=== PATIENT | male | born 1945 | race Caucasian/White ===

== ENCOUNTER → 2018-12-02 | Outpatient (CLI) | payer MEDICARE ==
--- NOTE | 2018-12-06 08:31 | CT ---
EXAMINATION TYPE: CT angio abd aorta w/Runoff DATE OF EXAM: 12/02/2018 COMPARISON: None HISTORY: AAA. CT DLP: 1380 mGycm CONTRAST: CTA abdominal aorta with 3-D reconstruction is performed without Oral Contrast and with IV Contrast, patient injected with 80 mL of Isovue 370. Contrast CTA of the abdominal aorta with runoff of the lower extremity arterial system was performed from the lung bases through the ankles and feet. 3-D reconstruction imaging obtained at a separate wo rkstation. ABDOMINAL AORTA: Distal thoracic aneurysm is noted measuring 4.8 cm AP dimension. There is infrarenal abdominal aortic aneurysm measuring 4.6 cm AP dimension and 8.1 cm in length. There is mural thrombu s and atheromatous change. No evidence for dissection. There is aneurysm of the right common iliac ar nanci Iliac vessels: There is aneurysm of the right common iliac artery measuring 2.7 cm. There is ectasia of the left common iliac artery without additional aneurysm. Internal and external iliac arteries are nonaneurysmal. Mild scattered atheromatous change without definite hemodynamically significant steno sis. Femoral arteries: Mild atheromatous change noted bilaterally without hemodynamically significant sten osis. Popliteal arteries: Popliteal arteries are patent bilaterally with only mild plaque formation noted. Below the knee arteries: Trifurcation is patent bilaterally. Peroneal, anterior and posterior tibial arteries demonstrate mild calcific disease without evidence for hemodynamically significant stenosis. Limited runoff of the ankles and feet given timing of the contrast bolus. LIVER/GB- No significant abnormality is seen. PANCREAS- No significant abnormality is seen. SPLEEN- No significant abnormality is seen. ADRENALS- No significant abnormality is seen. KIDNEYS/BLADDER- No significant abnormality is seen. BOWEL- No Significant abnormality GENITAL ORGANS: No gross abnormality seen. LYMPH NODES- No greater than 1cm abdominal or pelvic lymph nodes are appreciated. OSSEOUS STRUCTURES- No significant abnormality is seen. OTHER- No significant abnormality is seen. IMPRESSION- 1. Distal thoracic aortic aneurysm as noted. 2. 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
== END | disposition home or self-care (01) ==
LOC: RADCTMAIN 14:03
PROVIDERS: ATTEND Internal Medicine Interventional Cardiology
DX: I71.2 Thoracic aortic aneurysm, without rupture (principal); I71.4 Abdominal aortic aneurysm, without rupture; I72.3 Aneurysm of iliac artery
CPT/HCPCS: 82565; 84520; 75635; 36415; Q9967

== ENCOUNTER → 2020-02-22 | Outpatient (CLI) | payer MEDICARE, OTHER ==
--- NOTE | 2020-02-22 14:45 | CT ---
EXAMINATION TYPE: CT angio abdomen pelvis DATE OF EXAM: 02/22/2020 COMPARISON: CTA December 02, 2018 HISTORY: Follow up to AAA CT DLP: 979.6 mGycm, Automated Exposure Control for Dose Reduction was Utilized. CONTRAST: CTA scan of the abdomen and pelvis is performed without oral and without and with IV Contrast, patien t injected with 80 mL of Isovue 370. Aneurysm protocol with 3-D reconstructed images created on an in dependent workstation and reviewed. FINDINGS: VASCULAR: Ectatic course to the descending thoracic aorta. Descending thoracic aorta measures up to 5 .1 cm axial image 10 just above diaphragm. Moderate peripheral plaque. Patent celiac artery, SMA, sandhya ateral single renal arteries and MARY without significant stenosis. There is gradual tapering with ect atic course proximal to midsegment abdominal aorta before there is more focal distal AAA up to 5.3 cm transversely axial image 46, study increased in size from 4.6 cm prior study. Aneurysm does not exte nd into the common iliac arteries bilaterally. Length of aneurysm stable approaching roughly 8 cm in length. There is focal clotted aneurysm of the distal common iliac artery up to 2.5 cm image 60 uncha nged from prior. Moderate to severe calcified plaque in the iliac branch vessels is redemonstrated. LUNG BASES: No significant abnormality is appreciated. LIVER/GB: No significant abnormality is appreciated. PANCREAS: No significant abnormality is seen. SPLEEN: Occasional calcifications throughout the spleen are redemonstrated. ADRENALS: Low dense thickening to both adrenal glands consistent with lipid rich hyperplasia is redem onstrated. KIDNEYS: No significant abnormality is seen. BOWEL: No significant abnormality is seen. PROSTATE/SEMINAL VESICLES: Mildly enlarged prostate consistent with BPH. LYMPH NODES: No greater than 1cm abdominal or pelvic lymph nodes are appreciated. OSSEOUS STRUCTURES: Multilevel facet arthropathy mid to lower lumbar spine. OTHER: No significant additional abnormality is seen. IMPRESSION: Worsening distal AAA up to 5.3 cm in diameter prior study. At minimum imaging follow-up o r monitoring in 3-6 months time is advised. Consider surgical and/or endovascular referral.
== END | disposition home or self-care (01) ==
LOC: RADCTMAIN 10:26
PROVIDERS: ATTEND Internal Medicine Cardiovascular Disease
DX: I71.4 Abdominal aortic aneurysm, without rupture (principal)
CPT/HCPCS: 82565; 84520; 36415; 74174; Q9967

== ENCOUNTER → 2020-08-23 | Outpatient (CLI) | payer MEDICARE, OTHER ==
[2020-08-23 13:13] LABS: ALT 18 U/L (4-49); AST 21 U/L (17-59); Cholesterol 173 mg/dL (<200); HDL Cholesterol 41 mg/dL (40-60); LDL Cholesterol,Calculated 105 mg/dL (0-99); Triglycerides 133 mg/dL (<150)
--- NOTE | 2020-08-24 14:18 | CT ---
EXAMINATION TYPE: CT angio abdomen pelvis DATE OF EXAM: 08/23/2020 COMPARISON: 02/22/2020 INDICATION: Abdominal aortic aneurysm DLP: 619.00 mGycm, Automated exposure control for dose reduction was used. CONTRAST: 100 mL of Isovue 370. Study performed without Oral Contrast TECHNIQUE: Axial images were obtained from above the diaphragm to the pubic rami in the axial plane a t 5 mm thick sections. Reconstructed images are reviewed on the computer in the coronal plane. FINDINGS: Limited CT sections are obtained the lung bases. The lung bases are clear. There is tortuosity of t he descending thoracic aorta. The thoracic aorta above the diaphragm is a transverse dimension of 4.[address] ABDOMEN: Aorta: The celiac axis and superior mesenteric artery origins appear normal. Bilateral renal artery t akeoffs appear normal. Vascular calcification is present. There is a infrarenal abdominal aortic aneu rysm with an AP diameter of 5.3 cm. This extends into the right common iliac artery. There is mild pr ominence of the left common iliac artery distally. Some aneurysmal dilatation of the distal right com mon iliac artery bifurcation is present measuring 3.0 cm. Left distal common iliac artery measures 2. 0 cm, Iliac arteries extending to the common femoral arteries. Common femoral arteries and profunda femoris vessels are normal. Liver: Normal Spleen: Normal Pancreas: Normal Adrenal glands: There is mild fullness of the left adrenal gland measuring 1.6 cm. Right adrenal glan d is normal. Gallbladder: Normal Kidneys: No masses are evident. No hydronephrosis is present. No cysts are present. No renal stone s are identified. Inferior vena cava: Normal. CT PELVIS: Loops of bowel within the abdomen and pelvis are normal. The studies without oral contrast limiti ng bowel evaluation. Appendix: Normal as visualized. Urinary bladder: Normal. Genitourinary structures: Prostate is prominent. Some calcification is present. Osseous structures: No suspicious lytic or sclerotic lesions. IMPRESSIONS: 1. Dominant aortic aneurysm is stable from comparison. This infrarenal abdominal aortic aneurysm ext ends into the common iliac vessels discussed above.
== END | disposition home or self-care (01) ==
LOC: RADCTMAIN 10:45
PROVIDERS: ATTEND Internal Medicine Cardiovascular Disease
DX: I71.4 Abdominal aortic aneurysm, without rupture (principal)
CPT/HCPCS: 80061; 82565; 84450; 84460; 84520; 36415; 74174; Q9967

== ENCOUNTER → 2021-09-08 | Outpatient (CLI) | payer MEDICARE, OTHER ==
--- NOTE | 2021-09-08 14:36 | CT ---
EXAMINATION TYPE: CT angio abdomen pelvis DATE OF EXAM: 09/08/2021 COMPARISON: 08/23/20 HISTORY: AAA follow up CT DLP: 1015.50 mGycm CONTRAST: CTA abdominal aorta with 3-D reconstruction is performed without Oral Contrast and with IV Contrast, patient injected with 80 mL of Isovue 370. Contrast CTA of the abdominal aorta was performed from the lung bases through the base of the pelvis. 3-D reconstruction imaging obtained at a separate workstation. CONTRAST CT ABDOMEN AND PELVIS ABDOMINAL AORTA: At the aortic hiatus there is a abdominal aortic aneurysm measuring 5.2 cm versus 4. 9 cm previously. There is additional infrarenal abdominal aortic aneurysm measuring 5.3 cm AP dimensi on versus 5.8 cm currently. Aneurysm extends to the level of the aortic bifurcation. Ectatic iliac ve ssels are noted without additional aneurysm. Major branch vessels are patent. LIVER/GB- No significant abnormality is seen. PANCREAS- No significant abnormality is seen. SPLEEN- No significant abnormality is seen. ADRENALS- No significant abnormality is seen. KIDNEYS/BLADDER- No significant abnormality is seen. BOWEL- No Significant abnormality GENITAL ORGANS: No gross abnormality seen. LYMPH NODES- No greater than 1cm abdominal or pelvic lymph nodes are appreciated. OSSEOUS STRUCTURES- No significant abnormality is seen. OTHER- No significant abnormality is seen. IMPRESSION- 1. Progression of abdominal aortic aneurysm at the aortic hiatus and infrarenal regions.
== END | disposition home or self-care (01) ==
LOC: RADCTMAIN 10:25
PROVIDERS: ATTEND Internal Medicine Cardiovascular Disease
DX: I71.4 Abdominal aortic aneurysm, without rupture (principal)
CPT/HCPCS: 82565; 84520; 36415; 74174; Q9967

== ENCOUNTER 2022-04-21 10:41 | Day surgery (SDC) | payer MEDICARE, OTHER ==
[~2022-04-21 10:41] MED LIST: DEXAMETHASONE SOD PHOSPHATE 4 MG/ML 1 ML VIAL IV ONE; HYDROmorphone 0.5 MG/0.5 ML SYRINGE IVP PRN; LACTATED RINGERS 1,000 ML IV SCH; ONDANSETRON 4 MG/2 ML VIAL IVP ONE; SODIUM CHLORIDE 0.9% 1,000 ML in EMPTY BAG 1 BAG IV ONE
[2022-04-21] MEDS ORDERED: SODIUM CHLORIDE 0.9% 1,000 ML IV ONE (11:40)
[2022-04-21 11:54] VITALS: BP 141/80; PULSE 67; RESP 16; TEMP 98.2
[2022-04-21 11:56] LABS: Basophils % (A) 0 %; Eosinophils # (A) 0.8 k/uL (0-0.7); Eosinophils % (A) 7 %; HCT 44.1 % (39.0-53.0); Lymphocytes # (A) 3.1 k/uL (1.0-4.8); Lymphocytes % (A) 27 %; MCH 31.7 pg (25.0-35.0); MCV 93.1 fL (80.0-100.0); Mean Platelet Volume 7.7; Monocytes # (A) 0.5 k/uL (0-1.0); Monocytes % (A) 4 %; Neutrophils % (A) 61 %; Platelet Count 251 k/uL (150-450); RBC 4.74 m/uL (4.30-5.90); RDW 14.5 % (11.5-15.5); WBC 11.6 k/uL (3.8-10.6)
[2022-04-21 12:09] LABS: Calcium 9.2 mg/dL (8.4-10.2); Potassium 4.7 mmol/L (3.5-5.1)
--- NOTE | 2022-04-21 13:08 | P.ANPRN ---
Procedure Note - Anesthesia - Invasive Line Left Arterial Line Time Out Performed: Yes ([id number]) Date of Procedure: 04/21/22 Time of Procedure: 12:28 Location of Patient: [facility] Preparation: Sterile Prep Arterial Line Location: Radial (left) Ultrasound Used: No Purpose - Visualization and Identification of Vasculature: No Needle Guage: 20g Image Stored and Saved: No Narrative: Central line placement per sterile protocol utilized.
== END 2022-04-21 16:00 | disposition home or self-care (01) ==
LOC: OR 10:41 → EDSTATUS 14:15 → OR 16:00 → UNDODISIN 16:00
PROVIDERS: ATTEND Internal Medicine Interventional Cardiology
DX: I71.40 Abdominal aortic aneurysm, without rupture, unspecified (principal); I10 Essential (primary) hypertension; E78.5 Hyperlipidemia, unspecified; F17.210 Nicotine dependence, cigarettes, uncomplicated
CPT/HCPCS: 80048; 85025; 86850; 86900; 86901

== ENCOUNTER 2022-06-05 09:45 | Inpatient (IN) | payer MEDICARE, OTHER ==
[~2022-06-05 09:45] MED LIST changes: -HYDROmorphone 0.5 MG/0.5 ML SYRINGE IVP PRN; -LACTATED RINGERS 1,000 ML IV SCH; +MIDAZOLAM 2 MG/2 ML VIAL IV PRN
[2022-06-05] MEDS ORDERED: ASPIRIN 325 MG TAB ONE (10:19)
[2022-06-05] MEDS ORDERED: ASPIRIN 325 MG TAB PO STA (10:21)
[2022-06-05] MEDS ORDERED: ASPIRIN 325 MG TAB PO ONE (10:21)
[2022-06-05 10:35] LABS: Basophils # (A) 0.1 k/uL (0-0.2); Basophils % (A) 1 %; Eosinophils # (A) 0.9 k/uL (0-0.7); Eosinophils % (A) 7 %; HCT 45.6 % (39.0-53.0); HGB 15.1 gm/dL (13.0-17.5); Lymphocytes # (A) 2.9 k/uL (1.0-4.8); Lymphocytes % (A) 21 %; MCH 30.6 pg (25.0-35.0); MCHC 33.1 g/dL (31.0-37.0); MCV 92.3 fL (80.0-100.0); Mean Platelet Volume 7.3; Monocytes # (A) 0.6 k/uL (0-1.0); Monocytes % (A) 4 %; Neutrophils % (A) 66 %; Platelet Count 240 k/uL (150-450); RBC 4.94 m/uL (4.30-5.90); RDW 14.4 % (11.5-15.5); WBC 13.7 k/uL (3.8-10.6)
[2022-06-05 10:52] LABS: Potassium 4.3 mmol/L (3.5-5.1)
[2022-06-05] MEDS ORDERED: GLYCOPYRROLATE 0.2 MG/ML 2 ML VIAL ONE (11:54)
[2022-06-05] MEDS ORDERED: LIDOCAINE 2% INJ 20 MG/ML (2 ML VIAL) ONE (11:54)
[2022-06-05] MEDS ORDERED: NEOSTIGMINE 1 MG/ML 10 ML VIAL ONE (11:54)
[2022-06-05] MEDS ORDERED: fentaNYL (PF) 50 MCG/ML 2 ML AMP ONE (11:54)
[2022-06-05] MEDS ORDERED: PHENYLEPHRINE-0.9% NACL SYG 1,000 MCG/10 ML SYRINGE ONE (11:54)
[2022-06-05] MEDS ORDERED: HYDROmorphone (PF) 1 MG/ML ONE (11:54)
[2022-06-05] MEDS ORDERED: PROPOFOL 10 MG/ML 20 ML VIAL IV ONE (11:54)
[2022-06-05] MEDS ORDERED: ROCURONIUM 10 MG/ML (5 ML VIAL) IV ONE (11:54)
[2022-06-05] MEDS ORDERED: MIDAZOLAM 2 MG/2 ML VIAL ONE (11:54)
--- NOTE | 2022-06-05 12:20 | P.ANPRN ---
Procedure Note - Anesthesia - Invasive Line Left Arterial Line Time Out Performed: Yes Date of Procedure: 06/05/22 Time of Procedure: 10:45 Location of Patient: [facility] Preparation: Sterile Prep, Sterile Dressing Arterial Line Location: Radial Ultrasound Used: No Purpose - Visualization and Identification of Vasculature: No Narrative: Informed consent obtained from the patient. Procedure was performed under complete aseptic precautions. The left wrist is slightly extended and placed on a roll of cloth. Radial artery palpated and appeared to have a intact collateral circulation. Front of the wrist was cleaned with ChloraPrep. It was draped and 2 mL of 1% lidocaine was infiltrated and ability into the front of the wrist. A 20-gauge two and half inch Arrow arterial catheter was inserted and a bright red blood/back was noticed. It was connected to the pressure monitoring line and the flashback was confirmed. The line was sutured into the skin. Tegaderm dressing was applied. Patient tolerated the procedure very well with no apparent complications.
[2022-06-05] MEDS ORDERED: SODIUM CHLORIDE 0.9% 1,000 ML IV ONE ×2 (13:30→15:50)
[2022-06-05] MEDS ORDERED: IOPAMIDOL-250 100ML BTL INTRAARTER ONE ×2 (14:20→14:21)
[2022-06-05] MEDS ORDERED: NALOXONE 0.4 MG/ML 10 ML VIAL IVP PRN (14:25)
[2022-06-05] MEDS ORDERED: diphenhydrAMINE 50 MG/ML 1 ML VIAL IVP ONE (14:48)
[2022-06-05] MEDS: HYDROmorphone 0.5 MG/0.5 ML SYRINGE IVP PRN ×4 (14:50→15:45)
[2022-06-05] MEDS: SODIUM CHLORIDE 0.9% 1,000 ML in EMPTY BAG 1 BAG IV SCH ×7 (16:00→20:43)
[2022-06-05] MEDS: LACTATED RINGERS 1,000 ML IV SCH (16:22)
--- NOTE | 2022-06-05 20:45 | P.PCN ---
Date of Procedure: 06/05/22 Operative Findings: Endovascular Repair of Abdominal Aortic Aneurysm(AAA) Procedure performed: 1. Successful endovascular repair of infrarenal AAA using 36 x 14 x 103 mm Endurant bifurcated stent graft system as a main body with an extension using 16 x 20 x 124 mm Endurant stent graft limb to the right iliac and 16 x 28 x 156 mm Endurant stent graft limb to the left iliac 2. Successful deployment of the Ruthie-FX EndoAnchor system (Aptus) 3. Intravascular ultrasound of the aorta and bilateral iliacs 4. An abdominal aortogram and bilateral iliacs angiogram 5. Successful percutaneous repair of bilateral femoral arteries and successful ultrasound-guided access of bilateral femoral arteries Performing physicians: Primary: Sisi Oglesby MD Paint Technician: Donald Lawson DO Indication: This is a 76-year-old gentleman who sees Dr. Lindsay regularly. He was diagnosed recently with infrarenal abdominal aortic aneurysm exceeding 5.5 cm in diameter. It was progressed compared to before. That was documented by duplex study and subsequently CTA. In the light of that he was brought today to undergo endovascular repair Approach: Right and left common femoral arteries Complications: None Level of sedation: The procedure was performed under general anesthesia Procedure description: After obtaining an informed consent the patient was brought to the cardiac Saturation Equipment Operator. The patient subsequently was sedated and under general anesthesia. Subsequently the patient was prepped and draped in the usual sterile fashion. Subsequently flowing of the right and left groins was performed. At that point the right and left common femoral arteries were cannulated using micropuncture technique under ultrasound guidance, the micropuncture wire passed easily and subsequently we dilated both femoral artery using a 6 Malian sheath. Then we deployed two Perclose and itchy groin. They were deployed at 2 o'clock and 10 o'clock on each side. After that we place an 8 Malian sheath on each side. That was performed over an 035 wire. At that point anticoagulation was initiated using heparin with continuous ACT monitoring throughout the procedure and also continuous hemodynamic monitoring throughout the procedure by the anesthesia group as well as by the operating physicians. We decided to go with the large bore On the left side which was an 18 Malian sheath and the smaller sheath on the right side and that was a 12 Malian sheath. At that point we did advance an [address] to the thoracic aorta. Subsequently a 5 Malian marked pigtail catheter was advanced over the 035 wire to the abdominal aorta. We did perform an aortogram and bilateral iliac angiogram where we were able to locate the takeoff of the renal arteries. The angiogram was performed multiple times using power injection and under digital subtraction. We did the injection multiple times to assess the exact takeoff of the right and left renal arteries. After the angiogram was performed and after we marked the takeoff of the right and left renal arteries we decided to go with the main body of the graft. That was Endurant 36 x 14 x 103 mm stent graft bifurcated system. The graft was advanced from the left femoral artery after we took the 8 Malian sheath out. It was advanced under fluoroscopy guidance and located under fluoroscopy guidance. The pigtail catheter from the right side was left in place and multiple injection under digital subtraction as was performed to correct for parallax and also to assess the exact date of the renal arteries. Subsequently the bifurcated graft was deployed slowly. The bifurcated graft was deployed over 035 Lunderquist wire. Subsequently we did intravascular ultrasound of the aorta as well as right iliac going from the right common femoral artery through the 8 Malian sheath. We were able to measure the length of the right limb. And at that point we did advance an 035 Lenderquist wire through the intravascular ultrasound catheter and the catheter was withdrawn out after the measurement of the length of the right limp was performed. And on the right side we were able to advance Endurant stent the graft limb and that was 16 x 120 x 124. The limb was advanced after the 8 Malian sheath was taken out and it was advanced under fluoroscopy guidance and positioned under fluoroscopy guidance. Subsequently the limb was deployed slowly under fluoroscopy guidance after assessing proximally and distally. For the left limp we did again intravascular ultra sound to assess the length. We decided to go with Endurant 16 x 28 x 156 mm stent graft limp. That was done after the main body of the graft was taken out over the Lunderquist wire and after replacing an 18 Malian sheath. Subsequently the limp was advanced under fluoroscopy guidance and positioned under fluoroscopy guidance after addressing the take off of the left internal iliac artery. This limb was again deployed under fluoroscopy guidance. Subsequently we did kissing balloon of the main body as well as the Olympus using 14 x 40 mm balloon. The balloon was inflated under 6 carlyn. Final intravascular ultrasound was performed from the right side and showed questionable area at the distal edge of the right limp. We decided to do balloon angioplasty on that and that was performed using 8 mm x 40 mm balloon. Finally we did final angiogram and that revealed no evidence of endoleak with an excellent angiographic results. By the end we were able to achieve hemostasis of the right and left common femoral arteries using the Perclose which was performed at the beginning of the procedure. The patient did have good pedal pulses bilaterally. The procedure was completed with no complications Postprocedure management: The patient will be transferred to recovery He will be admitted to a telemetry unit on 3 S. Discharge in the next 24 hours
[2022-06-05] MEDS ORDERED: ASPIRIN 81 MG PO SCH (21:00)
[2022-06-05] MEDS: lisinopriL 20 MG TAB PO SCH (21:01)
[2022-06-06 04:23] VITALS: RESP 18
[2022-06-06] MEDS: LACTATED RINGERS 1,000 ML IV SCH (06:22)
--- NOTE | 2022-06-06 06:47 | P.DS ---
Providers Date of admission: 06/05/22 09:45 Attending physician: Vito Esquivel Consults: 06/05/22 06:38 Consult to Anesthesia Routine Consulting Provider: Anesthesia,Services Consult Reason/Comments: General anesthesia for Aortic Stent procedure Primary care physician: Juan Sandoval Fuller Hospital Course: The patient is a pleasant 76-year-old gentleman who underwent yesterday successful endovascular repair of infrarenal abdominal aortic aneurysm with great results and with no evidence of endoleak. The patient was seen this morning. Both groins are soft with no bruises noted. He does have grade bilateral pedal pulses. Hemodynamically he is stable and he is asymptomatic from a cardiovascular standpoint of view. The patient would like to go home. From a cardiac standpoint of view, the patient can be discharged home and the patient will follow with Dr. Lindsay a few days. Plan - Discharge Summary Discharge Rx Participant: No New Discharge Prescriptions: Continue Metoprolol Succinate (ER) [Toprol XL] 25 mg PO DAILY Ascorbic Acid [Vitamin C] 1 tab PO DAILY amLODIPine 10 mg PO DAILY Simvastatin 40 mg PO DAILY Enalapril Maleate 20 mg PO BID Aspirin [Adult Low Dose Aspirin EC] 81 mg PO HS Discharge Medication List Ascorbic Acid [Vitamin C] 1 tab PO DAILY 04/17/22 [History] Aspirin [Adult Low Dose Aspirin EC] 81 mg PO HS 04/17/22 [History] Enalapril Maleate 20 mg PO BID 04/17/22 [History] Metoprolol Succinate (ER) [Toprol XL] 25 mg PO DAILY 04/17/22 [History] Simvastatin 40 mg PO DAILY 04/17/22 [History] amLODIPine 10 mg PO DAILY 04/17/22 [History] Follow up Appointment(s)/Referral(s): Cj Lindsay MD [STAFF PHYSICIAN] - 1 Week
[2022-06-06 07:20] LABS: Basophils % (A) 0 %; Eosinophils # (A) 0.1 k/uL (0-0.7); Eosinophils % (A) 0 %; HCT 40.7 % (39.0-53.0); HGB 13.8 gm/dL (13.0-17.5); Lymphocytes # (A) 1.4 k/uL (1.0-4.8); Lymphocytes % (A) 9 %; MCH 31.1 pg (25.0-35.0); MCHC 33.8 g/dL (31.0-37.0); MCV 91.9 fL (80.0-100.0); Mean Platelet Volume 7.6; Monocytes # (A) 0.7 k/uL (0-1.0); Monocytes % (A) 5 %; Neutrophils # (A) 12.3 k/uL (1.3-7.7); Neutrophils % (A) 84 %; Platelet Count 174 k/uL (150-450); RBC 4.43 m/uL (4.30-5.90); RDW 14.6 % (11.5-15.5); WBC 14.7 k/uL (3.8-10.6)
[2022-06-06 07:29] LABS: Calcium 8.4 mg/dL (8.4-10.2); Potassium 3.8 mmol/L (3.5-5.1)
[2022-06-06] MEDS: lisinopriL 20 MG TAB PO SCH (08:19)
[2022-06-06 08:24] VITALS: BP 136/75; PULSE 89; TEMP 98.1
[2022-06-06] MEDS ORDERED: ATORVASTATIN 20 MG TAB PO SCH (09:00)
[2022-06-06] MEDS ORDERED: METOPROLOL SUCCINATE (ER) 25 MG TAB.ER.24H PO SCH (09:00)
[2022-06-06] MEDS ORDERED: ASCORBIC ACID 500 MG TAB PO SCH (09:00)
[2022-06-06] MEDS ORDERED: amLODIPine 10 MG TAB PO SCH (09:00)
--- NOTE | 2022-06-08 07:46 | IR ---
EXAMINATION TYPE: IR stent intravas non coronary DATE OF EXAM: 06/05/2022 CLINICAL HISTORY: AAA TECHNIQUE: Fluoroscopy. COMPARISON: CT September 08, 2021. FINDINGS: Fluoroscopic guidance was provided during abdominal angiogram with stent insertion procedu re performed by Dr. Esquivel. A total of 45.2 minutes of fluoroscopic time was utilized during the proce dure and 355 spot images was acquired. Please refer to procedure note for further details. IMPRESSION: As Above.
== END 2022-06-06 10:02 | disposition home or self-care (01) | DRG 269 ==
LOC: 2ORMAIN 09:45 → 3SCARD 15:12
PROVIDERS: ADMIT Internal Medicine Interventional Cardiology; ATTEND Internal Medicine Interventional Cardiology
PROC: 04V03DZ Restriction of Abdominal Aorta with Intraluminal Device, Percutaneous Approach (ICD-10-PCS; principal; 2022-06-05 12:00)
PROC: B41D1ZZ Fluoroscopy of Aorta and Bilateral Lower Extremity Arteries using Low Osmolar Contrast (ICD-10-PCS; principal; 2022-06-05 12:00)
DX: I71.43 Infrarenal abdominal aortic aneurysm, without rupture (principal); N18.9 Chronic kidney disease, unspecified; Z79.82 Long term (current) use of aspirin; Z79.899 Other long term (current) drug therapy
CPT/HCPCS: 34705; 37252; 80048; 85025; 86850; 86900; 86901

== ENCOUNTER → 2022-09-03 | Outpatient (CLI) | payer MEDICARE, OTHER ==
--- NOTE | 2022-09-03 11:20 | CT ---
EXAMINATION TYPE: CT angio abdomen pelvis CT DLP: 2495 mGycm, Automated exposure control for dose reduction was used. DATE OF EXAM: 09/03/2022 10:53 AM COMPARISON: 09/08/2024 CLINICAL INDICATION:Male, 77 years old with history of I71.42,Z98.890; Aortic abdominal aneurysm TECHNIQUE: Multiple thin slice sub-millimeter images were obtained through the abdomen, pelvis, and l ower extremities after administration of contrast. 3-D reconstructed images and maximum intensity pr ojection images were obtained of the abdomen, pelvis, and lower extremities. CT Contrast: Contrast used:50 ml mL of Isovue 370 without and with IV Contrast, Oral contrast used: without Oral Contrast None FINDINGS: CTA Abdomen and pelvis: Redemonstration of descending thoracic aorta/superior abdominal aorta fusifor m aneurysmal dilation up to 52 mm on prior and 54 mm on today's exam. There is mural thrombus/plaque seen throughout the aneurysmal dilation. Infrarenal abdominal aortic aneurysm with stent graft in place. Stent graft is patent. Biiliac stent grafts are also present and patent. There is an excluded lumen measuring up to 6.4 cm which is slight ly increased from 09/08/2021 where it was without sonographically measured up to 6.0 cm.. There is no evidence for high density contrast in the excluded lumen to suggest endoleak. There is moderate to se thanai atherosclerosis of the bilateral external iliac arteries. The origins of the superior mesenteric artery, celiac axis and bilateral single renal arteries are patent. There is narrowing of the celiac axis with at least 90% stenosis. Over a segment of at least 1 cm with poststenotic dilation. LOWER CHEST: No evidence of focal consolidation, pneumothorax or pleural effusion. Airspace opacities are seen within the lingula. Mitral valve annular calcifications and aortic valve leaflet calcificat ions. LIVER: Unremarkable GALLBLADDER AND BILE DUCTS: Unremarkable. PANCREAS: Unremarkable. SPLEEN: Scattered calcified granulomas. ADRENAL GLANDS: Unremarkable. KIDNEYS AND URETERS: No evidence of hydronephrosis or renal calculus. The ureters are unremarkable. Bilateral renal cysts. PELVIS BLADDER: Unremarkable REPRODUCTIVE: Calcifications within the prostate gland. ABDOMEN & PELVIS STOMACH AND BOWEL: No evidence of bowel obstruction. The appendix is normal. PERITONEUM: No evidence of pneumoperitoneum or free fluid. VASCULATURE: No evidence of aortic aneurysm. MUSCULOSKELETAL: No acute osseous abnormalities LYMPH NODES: No gross evidence for lymphadenopathy. SOFT TISSUE/ABDOMINAL WALL: Fat-containing buccal hernia. IMPRESSION 1. The inferior thoracic fusiform aortic aneurysm that extends into the superior abdominal aorta may be fractionally larger on today's exam previously approximately 52 mm today approximately 54. 2. Interval placement of infrarenal abdominal aorta stent graft without evidence of endoleak. The ex cluded lumen has mildly increased in size at 64 mm compared to 60 mm on prior. 3. Moderate atherosclerosis of the council arterial vasculature. 4. Celiac axis narrowing with poststenotic dilation suggestive of arcuate ligament syndrome. 5. Lingular airspace opacities correlate for pneumonia. 6. Moderate aortic valve leaflet calcifications.
== END | disposition home or self-care (01) ==
LOC: RADCTMAIN 07:56
PROVIDERS: ATTEND Internal Medicine Cardiovascular Disease
DX: I71.42 Juxtarenal abdominal aortic aneurysm, without rupture (principal); I71.20 Thoracic aortic aneurysm, without rupture, unspecified; R91.8 Other nonspecific abnormal finding of lung field; Z98.890 Other specified postprocedural states
CPT/HCPCS: 82565; 84520; 36415; 74174; Q9967

== ENCOUNTER → 2023-03-09 | Outpatient (CLI) | payer MEDICARE, OTHER ==
[2023-03-09 09:14] LABS: African American GFR (CKD) 59 (>60 ml/min/1.73 sqM); Blood Urea Nitrogen 23 mg/dL (9-20); Non-African American GFR(CKD) 51 (>60 ml/min/1.73 sqM)
--- NOTE | 2023-03-09 10:57 | CT ---
EXAMINATION TYPE: CT angio abdomen pelvis DATE OF EXAM: 03/09/2023 COMPARISON: 09/03/2022 HISTORY: aortic aneurysm CT DLP: 1200.4 mGycm CONTRAST: CTA thoracic and abdominal aorta with 3-D reconstruction is performed without Oral Contrast and with IV Contrast, patient injected with 90 mL of Isovue 370. Contrast CTA of the abdominal aorta was performed from the lung bases through the base of the pelvis. 3-D reconstruction imaging obtained at a separate workstation. CONTRAST CT ABDOMEN AND PELVIS ABDOMINAL AORTA: There is partially imaged descending thoracic aortic aneurysm measuring 6.1 cm AP di mension with mural thrombus. At the level of the aortic hiatus the aneurysm measures 3.4 cm. Aortoili ac stent graft is again noted to be in place. There is no evidence for endoleak this time. [place] ane urysm measures 5.5 x 4.9 cm unchanged from prior study.Celiac axis narrowing with poststenotic dilati on suggestive of arcuate ligament syndrome. LIVER/GB- No significant abnormality is seen. PANCREAS- No significant abnormality is seen. SPLEEN- No significant abnormality is seen. ADRENALS- No significant abnormality is seen. KIDNEYS/BLADDER- No significant abnormality is seen. BOWEL- No Significant abnormality GENITAL ORGANS: No gross abnormality seen. LYMPH NODES- No greater than 1cm abdominal or pelvic lymph nodes areappreciated. OSSEOUS STRUCTURES- No significant abnormality is seen. OTHER- No significant abnormality is seen. IMPRESSION- 1. Stable appearance of the patient's aortoiliac stent graft without evidence for endoleak or aneurys m progression. Stable distal descending thoracic aortic aneurysm as discussed.
== END | disposition home or self-care (01) ==
LOC: RADCTMAIN 08:38
PROVIDERS: ATTEND Internal Medicine Cardiovascular Disease
DX: I71.23 Aneurysm of the descending thoracic aorta, without rupture (principal); I71.40 Abdominal aortic aneurysm, without rupture, unspecified
CPT/HCPCS: 82565; 84520; 36415; 74174; Q9967

== ENCOUNTER → 2023-04-07 | Outpatient (CLI) | payer MEDICARE, OTHER ==
[2023-04-07 14:47] LABS: African American GFR (CKD) 61 (>60 ml/min/1.73 sqM); Blood Urea Nitrogen 23 mg/dL (9-20); Non-African American GFR(CKD) 53 (>60 ml/min/1.73 sqM)
--- NOTE | 2023-04-09 10:39 | CT ---
EXAMINATION TYPE: CT angio chest CT DLP: 730.20 mGycm, Automated exposure control for dose reduction was used. DATE OF EXAM: 04/07/2023 3:44 PM COMPARISON: Multiple CTs most recent 03/09/2023. CLINICAL INDICATION:Male, 77 years old with history of I71.20; Eval thoracic aorta. Pt has hx of AAA w/o rupture. TECHNIQUE/CONTRAST: CTA scan of the thorax is performed with IV Contrast, patient injected with 80 mL of Isovue 370, MIP images are created and reviewed these are created on a separate workstation.. FINDINGS: Lungs/Pleura: No evidence of focal consolidation, pleural effusion or pneumothorax. Moderate to sever e emphysema changes are seen in the lung apices . Right upper lobe calcified granuloma Airway: Large airways are patent. Heart: Heart is within normal limits for size. Vasculature: No evidence for intramural hematoma on noncontrast imaging. No evidence of intimal flap to suggest dissection. Scattered atherosclerotic disease. Descending thoracic aorta aneurysmal fusifo rm dilation measuring up to 6.0 cm there is some mural thrombus present. Partially visualized stent g raft in the abdomen.. The ascending thoracic aorta is within normal limits. Mediastinum: No gross evidence of adenopathy. Musculoskeletal: No acute osseous abnormalities Soft Tissues: Unremarkable. Lower neck: No significant findings. Upper Abdomen: No significant findings. IMPRESSION: Distended thoracic aorta fusiform aneurysmal dilation up to 6.0 cm which is similar to immediate prio r on 03/09/2023. Consider vascular surgical consultation. Moderate to severe emphysema changes in lung apices.
== END | disposition home or self-care (01) ==
LOC: RADCTMAIN 14:04
PROVIDERS: ATTEND Thoracic Surgery (Cardiothoracic Vascular Surgery)
DX: I71.23 Aneurysm of the descending thoracic aorta, without rupture (principal); J43.9 Emphysema, unspecified
CPT/HCPCS: 82565; 84520; 71275; 36415; Q9967